=== PATIENT | male | born 1955 | race Caucasian/White ===

== ENCOUNTER 2017-07-06 10:58 | Emergency (ER) | payer MEDICARE, OTHER ==
[2017-07-06 11:26] LABS: BASOPHILS % (AUTO) 0 % (0-3); EOSINOPHILS % (AUTO) 0 % (0-9); HEMATOCRIT 44 % (39-53); MEAN CORPUSCULAR VOLUME 87 fL (80-100); MONOCYTES % (AUTO) 4.3 % (0-12); NEUTROPHILS % (AUTO) 90.9 % (37-80)
[2017-07-06 11:51] LABS: APPEARANCE,URINE Slightly Cloudy; BILIRUBIN,URINE NEGATIVE (NEGATIVE); COLOR,URINE Yellow; GLUCOSE, URINE (UA) NEGATIVE (NEGATIVE); KETONES,URINE NEGATIVE (NEGATIVE); LEUKOCYTE ESTERASE ,URINE NEGATIVE (NEGATIVE); NITRATE,URINE NEGATIVE (NEGATIVE); OCCULT BLOOD,URINE TRACE INTACT (NEG-TRACE); UROBILINOGEN,URINE 0.2 (0.2-1.0 EU)
[2017-07-06 11:58] LABS: ALBUMIN 3.4 gm/dl (3.4-5.0); CALCIUM 8.2 mg/dl (8.5-10.1); POTASSIUM 3.4 mMol/L (3.5-5.1); THYROID STIMULATING HORMONE 2.487 uIU/ml (0.358-3.740)
[2017-07-06 12:03] LABS: RBC,URINE 0-2 (0-3AV/HPF); WBC,URINE 0-3 (0-5AV/HPF)
[2017-07-06 14:14] VITALS: TEMP 98; O2SAT 98
[2017-07-06 14:34] VITALS: BP 129/58; PULSE 93; RESP 24
== END 2017-07-06 14:50 | disposition short-term general hospital (02) | DRG 101 ==
LOC: ED 10:58
DX: R56.9 Unspecified convulsions (principal); R00.1 Bradycardia, unspecified
CPT/HCPCS: 36415; 70450; 80053; 81001; 84443; 84484; 85025; 93005; 99285

== ENCOUNTER 2017-08-14 15:22 | Emergency (ER) | payer MEDICARE, OTHER ==
[2017-08-14 16:09] LABS: BASOPHILS % (AUTO) 1 % (0-3); EOSINOPHILS % (AUTO) 1 % (0-9); HEMATOCRIT 42 % (39-53); HEMOGLOBIN 14.4 gm/dl (13.5-17.7); LYMPHOCYTES % (AUTO) 17.5 % (10-50); MEAN CORPUSCULAR HEMOGLOBIN 29.6 pg (27.0-32.0); MEAN CORPUSCULAR HGB CONC 34.1 gm/dl (32.0-36.0); MEAN CORPUSCULAR VOLUME 87 fL (80-100); MONOCYTES % (AUTO) 7.9 % (0-12)
[2017-08-14 16:19] LABS: BLOOD UREA NITROGEN 12 mg/dl (7-18); CALCIUM 8.1 mg/dl (8.5-10.1); CHLORIDE 103 mMol/L (98-107); CREATININE 1.17 mg/dl (0.80-1.30); GLOM FILT RATE 63 mL/min (>60); GLUCOSE 105 mg/dl (74-106)
[2017-08-14 16:20] LABS: ALCOHOL < 0.003 gm/dl (0.000-0.08)
[2017-08-14 16:28] LABS: CARBON DIOXIDE 29.7 mEq/L (21-32); POTASSIUM 4.5 mMol/L (3.5-5.1); SODIUM 137 mMol/L (136-145)
[2017-08-14 18:45] LABS: APPEARANCE,URINE Clear; BILIRUBIN,URINE NEGATIVE (NEGATIVE); COLOR,URINE Yellow; GLUCOSE, URINE (UA) NEGATIVE (NEGATIVE); KETONES,URINE NEGATIVE (NEGATIVE); LEUKOCYTE ESTERASE ,URINE NEGATIVE (NEGATIVE); NITRATE,URINE NEGATIVE (NEGATIVE); OCCULT BLOOD,URINE TRACE INTACT (NEG-TRACE); PH,URINE 7.5
[2017-08-14 18:49] LABS: AMPHETAMINES NEGATIVE (NEGATIVE); BACTERIA NEGATIVE (< 1+); BARBITUATES NEGATIVE (NEGATIVE); BENZODIAZEPINES NEGATIVE (NEGATIVE); CANNABINOL(THC) NEGATIVE (NEGATIVE); COCAINE(COC) NEGATIVE (NEGATIVE); CRYSTALS NEGATIVE (0-3 AVE/HPF); EPITHELIAL CELLS NEGATIVE (SQUAMOUS); METHADONE NEGATIVE (NEGATIVE); METHAMPHETAMINES NEGATIVE (NEGATIVE); OPIATES(OP13) NEGATIVE (NEGATIVE); OXYCODONE(OXY) NEGATIVE (NEGATIVE); PROPOXYPHENE(PPX) NEGATIVE (NEGATIVE); RBC,URINE NEG (0-3AV/HPF); TRICYCLIC ANTIDEPRESSANTS NEGATIVE (NEGATIVE); WBC,URINE 0-1 (0-5AV/HPF)
[2017-08-14 19:15] VITALS: TEMP 98.3
[2017-08-14 21:31] VITALS: O2SAT 100
[2017-08-14 21:32] VITALS: BP 127/59; PULSE 73; RESP 18
== END 2017-08-14 20:18 | disposition short-term general hospital (02) | DRG 81 ==
LOC: ED 15:22
DX: R40.20 Unspecified coma (principal); S00.93XA Contusion of unspecified part of head, initial encounter
CPT/HCPCS: 36415; 70460; 80048; 80305; 80307; 81001; 85025; 99285

== ENCOUNTER 2018-08-02 14:56 | Emergency (ER) | payer MEDICARE, OTHER ==
[2018-08-02 15:37] LABS: BASOPHILS % (AUTO) 1 % (0-3); EOSINOPHILS % (AUTO) 1 % (0-9); HEMATOCRIT 43 % (39-53); HEMOGLOBIN 14.4 gm/dl (13.5-17.7); MEAN CORPUSCULAR HEMOGLOBIN 28.5 pg (27.0-32.0); MEAN CORPUSCULAR HGB CONC 33.4 gm/dl (32.0-36.0); MEAN CORPUSCULAR VOLUME 85 fL (80-100); MONOCYTES % (AUTO) 8.8 % (0-12); NEUTROPHILS % (AUTO) 66.1 % (37-80)
[2018-08-02 15:55] LABS: APPEARANCE,URINE Clear; BILIRUBIN,URINE NEGATIVE (NEGATIVE); COLOR,URINE Yellow; GLUCOSE, URINE (UA) NEGATIVE (NEGATIVE); KETONES,URINE NEGATIVE (NEGATIVE); LEUKOCYTE ESTERASE ,URINE TRACE (NEGATIVE); NITRATE,URINE NEGATIVE (NEGATIVE); OCCULT BLOOD,URINE TRACE INTACT (NEG-TRACE); UROBILINOGEN,URINE 0.2 (0.2-1.0 EU)
[2018-08-02 15:56] LABS: ALBUMIN 3.4 gm/dl (3.4-5.0); ALKALINE PHOSPHATASE 100 IU/L (46-116); ALT 30 IU/L (14-63); AST 22 IU/L (15-37); BILIRUBIN,TOTAL 0.4 mg/dl (0.2-1.0); BLOOD UREA NITROGEN 15 mg/dl (7-18); CALCIUM 8.2 mg/dl (8.5-10.1); CARBON DIOXIDE 30.2 mEq/L (21-32); CHLORIDE 103 mMol/L (98-107); CREATININE 1.16 mg/dl (0.80-1.30); GLUCOSE 104 mg/dl (74-106); POTASSIUM 3.9 mMol/L (3.5-5.1); SODIUM 139 mMol/L (136-145); THYROID STIMULATING HORMONE 2.239 uIU/ml (0.358-3.740); TOTAL PROTEIN 6.6 gm/dl (6.4-8.2)
[2018-08-02 15:57] LABS: ALCOHOL < 0.003 gm/dl (0.000-0.08)
[2018-08-02 16:10] LABS: AMPHETAMINES NEGATIVE (NEGATIVE); BACTERIA TRACE (< 1+); BARBITUATES NEGATIVE (NEGATIVE); BENZODIAZEPINES NEGATIVE (NEGATIVE); CANNABINOL(THC) NEGATIVE (NEGATIVE); COCAINE(COC) NEGATIVE (NEGATIVE); CRYSTALS NEGATIVE (0-3 AVE/HPF); EPITHELIAL CELLS 0-2 (SQUAMOUS); METHADONE NEGATIVE (NEGATIVE); OPIATES(OPI) NEGATIVE (NEGATIVE); RBC,URINE 0-1 (0-3AV/HPF); TRICYCLIC ANTIDEPRESSANTS NEGATIVE (NEGATIVE); WBC,URINE 0-2 (0-5AV/HPF)
[2018-08-02 16:11] LABS: METHAMPHETAMINES NEGATIVE (NEGATIVE); OXYCODONE(OXY) NEGATIVE (NEGATIVE); PROPOXYPHENE(PPX) NEGATIVE (NEGATIVE)
[2018-08-02 16:18] VITALS: TEMP 97
[2018-08-02 17:24] VITALS: BP 153/82; PULSE 60; RESP 16; O2SAT 98
== END 2018-08-02 17:20 | disposition home or self-care (01) | DRG 885 ==
LOC: ED 14:56
DX: F32.0 Major depressive disorder, single episode, mild (principal)
CPT/HCPCS: 36415; 80053; 80305; 80307; 81001; 84443; 85025; 99282; 99283